=== PATIENT | female | born 1945 | race Caucasian/White ===

== ENCOUNTER 2017-09-14 12:56 | Emergency (ER) | payer MEDICARE, MEDICAID ==
[~2017-09-14] VITALS: Ht 162.6 cm; Wt 90.5 kg
[2017-09-14] MEDS ORDERED: NS 500 ML IV ONE (13:15)
[2017-09-14 13:20] LABS: BASO % 0.5 % (0.0-1.0); EOS # 0.4 10^3/uL (0.0-0.50); EOS % 5.8 % (0.0-3.0); IMMATURE GRANULOCYTE % 0.4 % (0-0); LYMPH # 1.5 10^3/uL (1.5-4.5); LYMPH % 20.4 % (24.0-44.0); MEAN CORPUSCULAR HEMOGLOBIN 29.5 pg (27.0-33.0); MEAN CORPUSCULAR HGB CONC 33.4 g/dl (32.0-36.5); MEAN CORPUSCULAR VOLUME 88.1 fl (80.0-96.0); MONO # 0.7 10^3/uL (0.0-0.8); MONO % 9.2 % (0.0-5.0); NEUTROPHILS # 4.7 10^3/uL (1.8-7.7); NEUTROPHILS % 63.7 % (36.0-66.0); PLATELET COUNT, AUTOMATED 273 10^3/uL (150-450); RED CELL DISTRIBUTION WIDTH 12.8 % (11.5-14.5); WHITE BLOOD COUNT 7.3 10^3/uL (4.0-10.0)
[2017-09-14 13:30] LABS: INR 0.86
[2017-09-14 13:45] LABS: ALBUMIN 3.7 GM/DL (3.2-5.2); ALBUMIN/GLOBULIN RATIO 0.86 (1.00-1.93); ALKALINE PHOSPHATASE 101 U/L (45-117); ALT/SGPT 16 U/L (12-78); ANION GAP 6 MEQ/L (8-16); AST/SGOT 13 U/L (7-37); BILIRUBIN,DIRECT < 0.1 MG/DL (0.0-0.2); BILIRUBIN,TOTAL 0.6 MG/DL (0.2-1.0); BLOOD UREA NITROGEN 11 MG/DL (7-18); CALCIUM LEVEL 9.6 MG/DL (8.8-10.2); CARBON DIOXIDE LEVEL 29 MEQ/L (21-32); CHLORIDE LEVEL 108 MEQ/L (98-107); CREATININE FOR GFR 0.98 MG/DL (0.55-1.02); GLOMERULAR FILTRATION RATE 59.7 (>39); GLUCOSE, FASTING 110 MG/DL (83-110); POTASSIUM SERUM 3.3 MEQ/L (3.5-5.1); SODIUM LEVEL 143 MEQ/L (136-145)
[2017-09-14] MEDS ORDERED: COLA100C5 PO (14:29)
[2017-09-14] MEDS ORDERED: FLEEENE4 PR (14:31)
[2017-09-14 14:45] VITALS: BP 157/75
== END 2017-09-14 15:37 | disposition home or self-care (01) ==
LOC: M ED 12:56
DX: K62.5 Hemorrhage of anus and rectum (principal); K59.00 Constipation, unspecified

== ENCOUNTER 2018-02-16 13:33 | Emergency (ER) | payer MEDICARE, MEDICAID | END 2018-02-16 14:24 | disposition home or self-care (01) | LOC: M ED 13:33 | DX: K64.4 Residual hemorrhoidal skin tags (principal) | CPT/HCPCS: 99284 ==

== ENCOUNTER 2019-02-12 09:52 | Emergency (ER) | payer MEDICARE, MEDICAID ==
[~2019-02-12] VITALS: Ht 157.5 cm; Wt 100.0 kg
[~2019-02-12 09:52] MED LIST: ANUS2.5C2 PR; COLA100C5 PO; FLEEENE4 PR
[2019-02-12] MEDS ORDERED: NEOSPORIN OINT 0.9 GM PKT (FLOOR STOCK) TOP ONE (10:45)
[2019-02-12 10:52] VITALS: BP 146/78
== END 2019-02-12 11:17 | disposition home or self-care (01) ==
LOC: M ED 09:52 → EDBD 09:52 → M ED 11:17
DX: L91.8 Other hypertrophic disorders of the skin (principal)

== ENCOUNTER 2023-03-25 14:50 | Emergency (ER) | payer MEDICARE, MEDICAID ==
[~2023-03-25] VITALS: Ht 157.5 cm; Wt 81.8 kg
[2023-03-25 16:02] LABS: BASO % 0.3 % (0.0-1.0); EOS # 0.3 10^3/uL (0.0-0.5); EOS % 2.8 % (0.0-3.0); HEMOGLOBIN 9.5 g/dl (12.0-15.5); LYMPH # 1.3 10^3/uL (1.5-5.0); LYMPH % 14.1 % (24.0-44.0); MEAN CORPUSCULAR HEMOGLOBIN 30.1 pg (27.0-33.0); MEAN CORPUSCULAR HGB CONC 32.8 g/dl (32.0-36.5); MEAN CORPUSCULAR VOLUME 91.8 fl (80.0-96.0); MONO # 0.7 10^3/uL (0.0-0.8); MONO % 7.2 % (2.0-8.0); NEUTROPHILS % 75.2 % (36.0-66.0); PLATELET COUNT, AUTOMATED 287 10^3/uL (150-450); RED BLOOD COUNT 3.16 10^6/uL (4.00-5.40); WHITE BLOOD COUNT 9.3 10^3/uL (4.0-10.0)
[2023-03-25 16:31] LABS: CK-MB VALUE MASS 2.4 NG/ML (<3.6)
[2023-03-25 16:32] LABS: CALCIUM LEVEL 9.6 MG/DL (8.3-10.6); CREATININE FOR GFR 1.64 MG/DL (0.55-1.30); GLOMERULAR FILTRATION RATE 32.4 (>39); MB/CK RELATIVE INDEX 1.6 (< OR =4); POTASSIUM SERUM 4.3 MMOL/L (3.5-5.1)
[2023-03-25] MEDS ORDERED: ISOVUE-370 76% 100ML VIAL As Ordered ONE (17:13)
[2023-03-25 17:16] LABS: MAGNESIUM LEVEL 2.1 MG/DL (1.8-2.4)
[2023-03-25 17:32] LABS: CK-MB VALUE MASS 1.7 NG/ML (<3.6)
[2023-03-25 17:33] LABS: MB/CK RELATIVE INDEX 1.2 (< OR =4)
[2023-03-25 18:58] VITALS: BP 127/60; TEMP 97.5
[2023-03-25 19:00] VITALS: O2SAT 99
== END 2023-03-25 19:12 | disposition home or self-care (01) ==
LOC: M ED 14:50
DX: R00.2 Palpitations (principal); I10 Essential (primary) hypertension; F17.200 Nicotine dependence, unspecified, uncomplicated
CPT/HCPCS: 71045; 71275; 80048; 82550; 82553; 83735; 84484; 85025; 87486; 87581; 87633; 87798; 93005; 93041; 94760; 99285; Q9967

== ENCOUNTER → 2023-04-06 | Outpatient (REF) | payer MEDICARE | LOC: M SFHCPLAZ 14:58 | PROVIDERS: ATTEND Family Medicine | DX: Z00.00 Encounter for general adult medical examination without abnormal findings (principal); Z13.1 Encounter for screening for diabetes mellitus; Z13.220 Encounter for screening for lipoid disorders; Z13.29 Encounter for screening for other suspected endocrine disorder; Z13.0 Encounter for screening for diseases of the blood and blood-forming organs and certain disorders involving the immune mechanism; Z13.21 Encounter for screening for nutritional disorder ==

== ENCOUNTER → 2023-04-06 | Outpatient (CLI) | payer MEDICARE, MEDICAID ==
[~2023-04-06] MED LIST changes: +LISI2.5T8 PO; +PRED20TA PO; +VENTAER INH
[2023-04-06 15:47] LABS: BASO % 0.2 % (0.0-1.0); EOS # 0.4 10^3/uL (0.0-0.5); EOS % 4.5 % (0.0-3.0); HEMATOCRIT 32.9 % (36.0-47.0); HEMOGLOBIN 10.2 g/dl (12.0-15.5); LYMPH # 1.5 10^3/uL (1.5-5.0); LYMPH % 15.9 % (24.0-44.0); MEAN CORPUSCULAR HEMOGLOBIN 29.1 pg (27.0-33.0); MONO # 0.7 10^3/uL (0.0-0.8); MONO % 7.3 % (2.0-8.0); NEUTROPHILS # 6.5 10^3/uL (1.5-8.5); NEUTROPHILS % 71.6 % (36.0-66.0); PLATELET COUNT, AUTOMATED 293 10^3/uL (150-450); WHITE BLOOD COUNT 9.1 10^3/uL (4.0-10.0)
[2023-04-06 16:13] LABS: THYROID STIMULATING HORMONE 1.047 uIU/ML (0.55-4.78)
[2023-04-06 16:16] LABS: PERCENT SATURATION 14.8 % (13.2-45.0)
[2023-04-06 16:17] LABS: ALBUMIN 3.8 G/DL (3.2-5.2); BILIRUBIN,TOTAL 0.8 MG/DL (0.3-1.2); CALCIUM LEVEL 10.1 MG/DL (8.3-10.6); CHOLESTEROL RISK RATIO 3.77 (<5); CREATININE FOR GFR 1.42 MG/DL (0.55-1.30); GLOMERULAR FILTRATION RATE 38.3 (>39); HDL CHOLESTEROL 49.5 MG/DL (>40); LDL CHOLESTEROL 112.3 MG/DL (<100); NON-HDL-C 137.5 MG/DL; POTASSIUM SERUM 4.5 MMOL/L (3.5-5.1); TOTAL PROTEIN 6.9 G/DL (5.7-8.2)
[2023-04-06 16:19] LABS: TOTAL 25(OH) VITAMIN D 27.6 NG/ML (20.0-100.0)
[2023-04-06 16:24] LABS: HEMOGLOBIN A1c 5.2 % (4.0-6.0)
== END ==
LOC: M PLALAB 12:13
PROVIDERS: ATTEND Student in an Organized Health Care Education/Training Program
DX: Z00.00 Encounter for general adult medical examination without abnormal findings (principal); I10 Essential (primary) hypertension; Z13.1 Encounter for screening for diabetes mellitus; Z13.220 Encounter for screening for lipoid disorders; Z13.29 Encounter for screening for other suspected endocrine disorder; Z13.0 Encounter for screening for diseases of the blood and blood-forming organs and certain disorders involving the immune mechanism; Z13.21 Encounter for screening for nutritional disorder; Z79.899 Other long term (current) drug therapy

== ENCOUNTER 2023-04-17 09:02 | Emergency (ER) | payer MEDICARE ==
[~2023-04-17] VITALS: Ht 157.5 cm; Wt 82.7 kg
[~2023-04-17 09:02] MED LIST changes: -LISI2.5T8 PO; -PRED20TA PO; -VENTAER INH
[2023-04-17] MEDS ORDERED: LISI2.5T8 PO (09:19)
[2023-04-17] MEDS ORDERED: methylPREDNISolone 125MG 2ML VIAL IV ONE (09:30)
[2023-04-17] MEDS ORDERED: ALBUTEROL SULFATE 2.5MG/0.5ML INH NEB SOLN INH ONE (09:30)
[2023-04-17] MEDS ORDERED: IPRATROPIUM 0.5MG/ALBUTEROL 2.5MG INH SOL UD 3ML (DUONEB) NEB ONE (09:30)
[2023-04-17 10:14] LABS: VENOUS HCO3 28.5 MMOL/L (23.0-27.0); VENOUS O2 SATURATION 63.1 % (60.0-80.0); VENOUS PARTIAL PRESSURE CO2 53.8 mmHg (38.0-50.0); VENOUS PARTIAL PRESSURE O2 35.5 mmHg (30.0-50.0); VENOUS PH 7.342 UNITS (7.330-7.430); VENOUS STANDARD HCO3 25.6 MMOL/L; VENOUS TOTAL CO2 30.2 MMOL/L (24.0-28.0)
[2023-04-17 10:21] LABS: BASO % 0.5 % (0.0-1.0); EOS # 0.4 10^3/uL (0.0-0.5); EOS % 5.7 % (0.0-3.0); HEMATOCRIT 29.8 % (36.0-47.0); HEMOGLOBIN 9.6 g/dl (12.0-15.5); LYMPH # 1.3 10^3/uL (1.5-5.0); LYMPH % 17.9 % (24.0-44.0); MEAN CORPUSCULAR HEMOGLOBIN 29.9 pg (27.0-33.0); MEAN CORPUSCULAR HGB CONC 32.2 g/dl (32.0-36.5); MEAN CORPUSCULAR VOLUME 92.8 fl (80.0-96.0); MONO # 0.5 10^3/uL (0.0-0.8); MONO % 7.3 % (2.0-8.0); NEUTROPHILS # 5.1 10^3/uL (1.5-8.5); NEUTROPHILS % 68.2 % (36.0-66.0); PLATELET COUNT, AUTOMATED 274 10^3/uL (150-450); RED BLOOD COUNT 3.21 10^6/uL (4.00-5.40); WHITE BLOOD COUNT 7.4 10^3/uL (4.0-10.0)
[2023-04-17 10:35] LABS: INR 0.91; PROTHROMBIN TIME 12.5 SECONDS (12.5-14.5)
[2023-04-17 10:48] LABS: CK-MB VALUE MASS < 1.0 NG/ML (<3.6)
[2023-04-17 10:49] LABS: ALBUMIN 3.5 G/DL (3.2-5.2); ALKALINE PHOSPHATASE 78 U/L (46-116); ALT/SGPT < 9 U/L (7.0-40); AST/SGOT < 8 U/L (<34); BILIRUBIN,DIRECT 0.2 MG/DL (<0.4); BILIRUBIN,TOTAL 0.5 MG/DL (0.3-1.2); BLOOD UREA NITROGEN 28 MG/DL (9-23); CARBON DIOXIDE LEVEL 28 MMOL/L (20-31); CHLORIDE LEVEL 105 MMOL/L (98-107); CPK CREATINE PHOSPHOKINASE 60 U/L (34-145); CREATININE FOR GFR 1.34 MG/DL (0.55-1.30); GLOMERULAR FILTRATION RATE 40.9 (>39); GLUCOSE, FASTING 96 MG/DL (74-106); MB/CK RELATIVE INDEX 1.66 (< OR =4); POTASSIUM SERUM 4.5 MMOL/L (3.5-5.1); SODIUM LEVEL 140 MMOL/L (136-145); TOTAL PROTEIN 6.7 G/DL (5.7-8.2)
[2023-04-17 10:51] LABS: THYROID STIMULATING HORMONE 0.951 uIU/ML (0.55-4.78)
[2023-04-17 10:56] LABS: PROCALCITONIN 0.09 ng/ml
[2023-04-17 11:45] LABS: MB/CK RELATIVE INDEX 1.72 (< OR =4)
[2023-04-17] MEDS ORDERED: PRED20TA PO (12:59)
[2023-04-17] MEDS ORDERED: VENTAER INH (12:59)
[2023-04-17 13:15] VITALS: BP 149/66; O2SAT 98
[2023-04-17 13:21] VITALS: TEMP 97.5
== END 2023-04-17 13:34 | disposition home or self-care (01) ==
LOC: M ED 09:02 → EDBD 09:02 → M ED 13:34
DX: J44.1 Chronic obstructive pulmonary disease with (acute) exacerbation (principal); I10 Essential (primary) hypertension; F17.200 Nicotine dependence, unspecified, uncomplicated
CPT/HCPCS: 71045; 80048; 80076; 82550; 82553; 82803; 83605; 83880; 84145; 84443; 84484; 85025; 85610; 87040; 87486; 87581; 87633; 87798; 93005; 93041; 94640; 94760; 96374; 99285; J2930

== ENCOUNTER 2023-08-08 13:14 | Emergency (ER) | payer MEDICARE ==
[~2023-08-08] VITALS: Ht 157.5 cm; Wt 81.8 kg
[~2023-08-08 13:14] MED LIST changes: +LISI2.5T8 PO; +PRED20TA PO; +VENTAER INH
[2023-08-08] MEDS ORDERED: ATOR40TA75 (13:43)
[2023-08-08 14:10] LABS: BASO % 0.4 % (0.0-1.0); EOS # 1.3 10^3/uL (0.0-0.5); EOS % 12.9 % (0.0-3.0); HEMATOCRIT 29.5 % (36.0-47.0); HEMOGLOBIN 9.5 g/dl (12.0-15.5); LYMPH # 1.7 10^3/uL (1.5-5.0); LYMPH % 16.2 % (24.0-44.0); MEAN CORPUSCULAR HEMOGLOBIN 30.2 pg (27.0-33.0); MEAN CORPUSCULAR HGB CONC 32.2 g/dl (32.0-36.5); MEAN CORPUSCULAR VOLUME 93.7 fl (80.0-96.0); MONO # 0.7 10^3/uL (0.0-0.8); MONO % 7.2 % (2.0-8.0); NEUTROPHILS # 6.4 10^3/uL (1.5-8.5); NEUTROPHILS % 62.9 % (36.0-66.0); PLATELET COUNT, AUTOMATED 272 10^3/uL (150-450); RED BLOOD COUNT 3.15 10^6/uL (4.00-5.40); WHITE BLOOD COUNT 10.2 10^3/uL (4.0-10.0)
[2023-08-08 14:29] LABS: INR 0.97; PROTHROMBIN TIME 12.6 SECONDS (12.5-14.5)
[2023-08-08 14:41] LABS: LIPASE 24 U/L (12-53)
[2023-08-08 14:42] LABS: CPK CREATINE PHOSPHOKINASE 57 U/L (34-145)
[2023-08-08 14:49] LABS: ALBUMIN 3.4 G/DL (3.2-5.2); ALKALINE PHOSPHATASE 130 U/L (46-116); ALT/SGPT 29 U/L (7.0-40); AST/SGOT 23 U/L (<34); BILIRUBIN,DIRECT 0.3 MG/DL (<0.4); BILIRUBIN,TOTAL 0.7 MG/DL (0.3-1.2); BLOOD UREA NITROGEN 27 MG/DL (9-23); CALCIUM LEVEL 9.8 MG/DL (8.3-10.6); CARBON DIOXIDE LEVEL 28 MMOL/L (20-31); CHLORIDE LEVEL 100 MMOL/L (98-107); CK-MB VALUE MASS < 1.0 NG/ML (<3.6); CREATININE FOR GFR 1.27 MG/DL (0.55-1.30); GLOMERULAR FILTRATION RATE 43.6 (>39); GLUCOSE, FASTING 98 MG/DL (74-106); MB/CK RELATIVE INDEX 1.75 (< OR =4); POTASSIUM SERUM 3.9 MMOL/L (3.5-5.1); SODIUM LEVEL 137 MMOL/L (136-145); TOTAL PROTEIN 6.7 G/DL (5.7-8.2)
[2023-08-08 15:27] LABS: CK-MB VALUE MASS < 1.0 NG/ML (<3.6)
[2023-08-08] MEDS ORDERED: ISOVUE-370 76% 100ML VIAL As Ordered ONE (15:27)
[2023-08-08 15:33] LABS: CPK CREATINE PHOSPHOKINASE 52 U/L (34-145); MB/CK RELATIVE INDEX 1.92 (< OR =4)
[2023-08-08 16:45] VITALS: TEMP 96.8; O2SAT 98
[2023-08-08 16:49] VITALS: BP 118/57
== END 2023-08-08 17:12 | disposition home or self-care (01) ==
LOC: M ED 13:14 → EDBD 13:14 → M ED 17:12
DX: R07.9 Chest pain, unspecified (principal); I10 Essential (primary) hypertension; Z87.891 Personal history of nicotine dependence; Z79.811 Long term (current) use of aromatase inhibitors; Z79.02 Long term (current) use of antithrombotics/antiplatelets
CPT/HCPCS: 36415; 71045; 71275; 80047; 80048; 80076; 82550; 82553; 83690; 84484; 85025; 85610; 93005; 93041; 94760; 99285; Q9967

== ENCOUNTER → 2023-10-04 | Outpatient (CLI) | payer MEDICARE ==
[~2023-10-04] MED LIST changes: +ATOR40TA75
== END ==
LOC: M EKG 09:13
PROVIDERS: ATTEND Internal Medicine Cardiovascular Disease
DX: R00.2 Palpitations (principal)

== ENCOUNTER → 2024-02-13 | Outpatient (CLI) | payer MEDICARE | LOC: M CARPUL 12:50 | PROVIDERS: ATTEND Internal Medicine Cardiovascular Disease | DX: R06.02 Shortness of breath (principal) ==

== ENCOUNTER → 2024-04-09 | Outpatient (CLI) | payer MEDICARE | LOC: M EKG 09:00 | PROVIDERS: ATTEND Internal Medicine Cardiovascular Disease | DX: R00.2 Palpitations (principal) ==

== ENCOUNTER 2024-07-24 08:07 | Emergency (ER) | payer MEDICARE ==
[~2024-07-24] VITALS: Ht 157.5 cm; Wt 81.8 kg
[2024-07-24 08:14] VITALS: TEMP 98.2
[2024-07-24 09:14] LABS: BASO % 0.5 % (0.0-1.0); EOS # 0.3 10^3/uL (0.0-0.5); EOS % 3.3 % (0.0-3.0); HEMATOCRIT 38.6 % (36.0-47.0); HEMOGLOBIN 12.1 g/dl (12.0-15.5); LYMPH # 1.2 10^3/uL (1.5-5.0); LYMPH % 15.4 % (24.0-44.0); MEAN CORPUSCULAR HEMOGLOBIN 28.7 pg (27.0-33.0); MEAN CORPUSCULAR HGB CONC 31.3 g/dl (32.0-36.5); MEAN CORPUSCULAR VOLUME 91.5 fl (80.0-96.0); MONO # 0.5 10^3/uL (0.0-0.8); NEUTROPHILS # 5.9 10^3/uL (1.5-8.5); NEUTROPHILS % 74.7 % (36.0-66.0); PLATELET COUNT, AUTOMATED 287 10^3/uL (150-450); RED BLOOD COUNT 4.22 10^6/uL (4.00-5.40); WHITE BLOOD COUNT 7.9 10^3/uL (4.0-10.0)
[2024-07-24 09:22] LABS: LIPASE 23 U/L (12-53)
[2024-07-24 09:24] LABS: ALBUMIN 3.7 G/DL (3.2-5.2); ALKALINE PHOSPHATASE 108 U/L (35-104); ALT/SGPT 10 U/L (7.0-40); AST/SGOT 13 U/L (<34); BILIRUBIN,DIRECT 0.2 MG/DL (<0.4); BILIRUBIN,TOTAL 0.9 MG/DL (0.3-1.2); CK-MB VALUE MASS < 1.0 NG/ML (<3.6); TOTAL PROTEIN 7.4 G/DL (5.7-8.2)
[2024-07-24 09:27] LABS: CPK CREATINE PHOSPHOKINASE 60 U/L (34-145); MB/CK RELATIVE INDEX 1.66 (< OR =4)
[2024-07-24] MEDS ORDERED: ISOVUE-370 76% 100ML VIAL As Ordered ONE (10:30)
[2024-07-24 10:39] LABS: CK-MB VALUE MASS < 1.0 NG/ML (<3.6); CPK CREATINE PHOSPHOKINASE 56 U/L (34-145); MB/CK RELATIVE INDEX 1.78 (< OR =4)
[2024-07-24 10:41] LABS: BLOOD UREA NITROGEN 15 MG/DL (9-23); CALCIUM LEVEL 10.3 MG/DL (8.3-10.6); CARBON DIOXIDE LEVEL 29 MMOL/L (20-31); CHLORIDE LEVEL 106 MMOL/L (98-107); CREATININE FOR GFR 1.23 MG/DL (0.55-1.30); GLOMERULAR FILTRATION RATE 45.1 (>39); GLUCOSE, FASTING 95 MG/DL (74-106); POTASSIUM SERUM 4.2 MMOL/L (3.5-5.1); SODIUM LEVEL 140 MMOL/L (136-145)
[2024-07-24 11:39] LABS: INR 0.97; PROTHROMBIN TIME 13.2 SECONDS (12.5-14.5)
[2024-07-24 11:49] VITALS: BP 122/58; O2SAT 98
== END 2024-07-24 12:13 | disposition home or self-care (01) ==
LOC: EDBD 08:07 → M ED 08:07
DX: K80.20 Calculus of gallbladder without cholecystitis without obstruction (principal); I10 Essential (primary) hypertension; Z87.891 Personal history of nicotine dependence; Z79.899 Other long term (current) drug therapy
CPT/HCPCS: 36415; 71045; 71275; 80048; 80076; 82550; 82553; 83690; 84484; 85025; 85610; 93005; 93041; 94760; 99285; Q9967

== ENCOUNTER → 2024-08-13 | Outpatient (CLI) | payer MEDICARE | LOC: M EKG 09:32 | PROVIDERS: ATTEND Internal Medicine Cardiovascular Disease | DX: R00.2 Palpitations (principal) ==

== ENCOUNTER 2025-04-07 08:04 | Emergency (ER) | payer MEDICARE ==
[~2025-04-07] VITALS: Ht 157.5 cm; Wt 79.5 kg
[~2025-04-07 08:04] MED LIST changes: -ATOR40TA75; +ATOR40TA75 PO
[2025-04-07] MEDS ORDERED: LISI20TA35 PO (08:18)
[2025-04-07] MEDS ORDERED: HOME MED LIST COMPLETE! XX SCH (09:00)
[2025-04-07 09:28] LABS: PLATELET COUNT, AUTOMATED 226 10^3/uL (150-450)
[2025-04-07 10:01] LABS: CALCIUM LEVEL 9.0 MG/DL (8.3-10.6); CARBON DIOXIDE LEVEL 29.0 MMOL/L (20-31); CHLORIDE LEVEL 103.0 MMOL/L (98-107); CREATININE FOR GFR 1.13 MG/DL (0.55-1.30); GLOMERULAR FILTRATION RATE 49.8 (>39); MAGNESIUM LEVEL 1.9 MG/DL (1.8-2.4); POTASSIUM SERUM 3.8 MMOL/L (3.5-5.1); SODIUM LEVEL 142.0 MMOL/L (136-145)
[2025-04-07] MEDS ORDERED: PROT1TAB2 PO (10:14)
[2025-04-07 10:26] VITALS: BP 135/61; TEMP 96.3; O2SAT 98
== END 2025-04-07 11:09 | disposition home or self-care (01) ==
LOC: EDBD 08:04 → M ED 08:04
DX: R00.2 Palpitations (principal); K21.9 Gastro-esophageal reflux disease without esophagitis; F41.9 Anxiety disorder, unspecified; E78.5 Hyperlipidemia, unspecified; I10 Essential (primary) hypertension; Z79.02 Long term (current) use of antithrombotics/antiplatelets; Z79.899 Other long term (current) drug therapy

== ENCOUNTER → 2025-06-01 | Outpatient (CLI) | payer MEDICARE ==
[~2025-06-01] MED LIST changes: +LISI20TA35 PO; +PROT1TAB2 PO
== END ==
LOC: M EKG 09:49
PROVIDERS: ATTEND Physician Assistant
DX: R00.2 Palpitations (principal)